=== PATIENT | female | born 1960 ===

== ENCOUNTER 2021-02-01 08:57 | Outpatient (CLI) | payer OTHER | END 2021-02-01 09:25 | disposition home or self-care (01) | LOC: MAMO-SONO 08:57 | PROVIDERS: ATTEND Surgery | DX: C50.811 Malignant neoplasm of overlapping sites of right female breast (principal); N60.11 Diffuse cystic mastopathy of right breast; N60.12 Diffuse cystic mastopathy of left breast ==

== ENCOUNTER 2022-05-09 05:49 | Day surgery (SDC) | payer OTHER ==
[~2022-05-09] VITALS: Ht 157.5 cm; Wt 70.3 kg
== END 2022-05-09 17:20 | disposition home or self-care (01) ==
LOC: CIR.AMB 05:49
PROVIDERS: ATTEND Surgery
DX: C50.811 Malignant neoplasm of overlapping sites of right female breast (principal); C77.3 Secondary and unspecified malignant neoplasm of axilla and upper limb lymph nodes; F17.210 Nicotine dependence, cigarettes, uncomplicated

== ENCOUNTER 2023-08-21 12:51 | Outpatient (CLI) | payer OTHER | END 2023-08-21 12:56 | disposition home or self-care (01) | LOC: SONOGRAMA 12:51 | PROVIDERS: ATTEND Surgery | DX: C50.811 Malignant neoplasm of overlapping sites of right female breast (principal); N60.11 Diffuse cystic mastopathy of right breast; N60.12 Diffuse cystic mastopathy of left breast ==